=== PATIENT | female | born 1970 | race Caucasian/White ===

== ENCOUNTER 2016-10-24 10:23 | Day surgery (SDC) | payer OTHER ==
[2016-10-24] VITALS (8 sets, daily range): BP systolic 102–125; BP diastolic 52–78; PULSE 60–86; RESP 16–33; O2SAT 97–100
[~2016-10-24] VITALS: Ht 162.6 cm; Wt 75.3 kg
[2016-10-24] MEDS: Lactated Ringer's 1,000 ML IV SCH ×2 (05:44→12:42)
[~2016-10-24 10:23] MED LIST: CA C PO; CHOL100045 PO; META-1 PO; [UNRECOGNIZED DRUG - CODE] PO; [UNRECOGNIZED DRUG - OTHER] PO
[2016-10-24] MEDS ORDERED: Dexamethasone 4 mg/mL Inj ONE (10:24)
[2016-10-24] MEDS ORDERED: fentaNYL-PF 50 mCg/mL 2 mL Inj ONE (10:24)
[2016-10-24] MEDS ORDERED: Propofol 10,000 mCg/mL 20 mL Inj ONE (10:24)
[2016-10-24] MEDS ORDERED: Lidocaine PF 1% 30 mL Inj ONE (10:24)
[2016-10-24] MEDS ORDERED: Ondansetron 2 mg/mL 2 mL Inj ONE (10:24)
[2016-10-24] MEDS ORDERED: Lactated Ringer's 1,000 ML IV SCH (12:34)
[2016-10-24] MEDS ORDERED: Lactated Ringer's 500 ML IV PRN (12:34)
--- NOTE | 2016-10-24 12:34 | PCM.HPANE ---
Patient Data Date of Service: October 24, 2016 ([id number]) Surgeon Admitting Provider: Attending Provider:Parvez Mcadams MD Primary Care Physician:Jacquelyn Peña MD Other Provider:Ramiro Kulkarni Anesthesia Reason for Visit Left Breast Cyst Ht/WT & BMI Height (Feet): 5 Height (Inches): 4.00 Weight (Kilograms): 75.3 Body Mass Index 28.00 Allergies Uncoded Allergies: CHLOROPREP (Allergy, Unknown, UNKNOWN, 10/22/16) bandaid (Adverse Reaction, Severe, rash, 10/22/16) Past Anesthesia History Anesthesia History: Denies:: Anesthesia Reactions, Malignant Hyperthermia Diabetes History Hx Diabetes?: No MRSA MRSA: No Medications Home Meds Incl Beta Kait: No Reported Medications Cholecalciferol (Vitamin D3) (Vitamin D)1,000 Unit Capsule2,000 Unit PO DAILY # 1 BOTTLE Ref 0 10/22/16 Multivitamins with Fluoride (Multivit-Fluor 0.5 mg/ml Drop)0.5 Mg/1 Ml Drops0.5 Mg PO DAILY 10/22/16 Metaxalone 800 Mg [id number] Mg PO TID PRN For Pain 10/22/16 [Cranberry Probiotic] No Conflict Check1 Tab PO DAILY 10/22/16 Ca Carbonate/Vitamin D3/Vit K (Calcium For Women Chewable Tab)1 Each Tab.chew1 Each PO DAILY 10/22/16 Discontinued Reported Medications No Historical Medication Ea 05/01/10 History History of ENT Problems?: No HEENT History: Denies:: Abnormal Airway Denture Type: None Teeth Condition: Within Normal Limits Hx of Heart Problems?: No Cardiovascular History: Denies:: Heart Murmur Hypertension Hx of Respiratory Problem?: No Respiratory History: Denies:: Use of C-PAP Machine Hx Neurologic Problems?: No Hx of GI Problems?: Yes Other GI Pertinent History: S/P GASTRIC SLEEVE, 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 (HX OF PREVIOUS CYSTS W/ RUPTURE LT BREAST CYST=CURRENT PROBLEM) Denies:: Currently Skin History: Positive for:: History Skin Disorders? (INTERMITTANT RASHES) Denies:: Pressure Ulcers Hx Musculoskeletal Problems?: Yes Musculoskeletal History: Positive for:: Osteoarthritis Hx of Psycho/Social Problems?: No Hx Surgeries?: Yes (PEARL,BTL,PELVIC FLOOR RPR,GASTRIC SLEEVE,FISTULA RPR) Hx Any Other Health Problems?: Yes Other History: Denies:: Cancer Endocrine Disease Hospitalization Thyroid Disease Hx Diabetes: No Hx Alcohol Use: Yes (OCCAS)Have You Smoked inLast 12 mo: No Stop/Bang S-Snoring: Do You Snore Loudly: Yes T-Tired: feel tired, fatigued: No O-Obsered: Observed not breath: No P-Blood Pressure: treated: No B- Body Mass Index > 35 kg/m2: No A- Age over 50: No N- Neck Large Circumference: No G- Gender Male: No NAYANA Total Score: 0 NAYANA Risk Assessment: Low Risk, <3 Yes Risk Assessment Category Category 1A: Patient has history of documented sleep apnea, and HAS NOT received any narcotic, sedative or anesthesia administration during this stay. Category 1B: Patient has history of documented sleep apnea, and HAS received any narcotic , sedative or anesthesia administration during this stay Category 2: Patient has SUSPECTED Obstructive Sleep Apnea, and HAS received any narcotic , sedative or anesthesia administration during this stay. Category 3: Patient has SUSPECTED Obstructive Sleep Apnea and HAS NOT received narcotic, sedative or anesthesia administration during this stay. Category 4: Outpatient in Procedural Areas with known sleep apnea or who screen positive for High Risk via the STOP/BANG questionnaire. Exam Exam Vital Signs Vital Signs Date Time Temp Pulse Resp B/P Pulse Ox O2 Delivery O2 Flow Rate FiO2 10/24/16 10:48 35.9 60 16 125/64 97 Room Air General Appearance: Alert, Oriented X3, Cooperative HEENT/AIRWAY: MP 1 Lungs: Clear to Auscultation Heart: Exam Unremarkable Meds/Labs/Diagnostics Admission Meds Current Medications Lactated Ringer's (Lr) 1,000 ml @ 120 mls/hr [id number] IV Last administered on t 05:44; Start 10/24/16 at 05:00; Stop 10/24/16 at 13:19 Plan Impression Patient chart reviewed, patient interviewed and anesthestic plan with risks, benefits, and alternatives discussed, and informed consent obtained. Vijay Ribeiro MD October 24, 2016 12:34
[2016-10-24] MEDS ORDERED: EPHEDrine Sulfate 50 mg/mL Inj IVPUSH PRN (12:35)
[2016-10-24] MEDS ORDERED: Phenylephrine 10,000 mCg/mL Inj IVPUSH PRN (12:35)
[2016-10-24] MEDS ORDERED: fentaNYL-PF 50 mCg/mL 2 mL Inj IVPUSH PRN (12:35)
[2016-10-24] MEDS ORDERED: Ondansetron 2 mg/mL 2 mL Inj IVPUSH PRN (12:35)
[2016-10-24] MEDS ORDERED: Dexamethasone 4 mg/mL Inj IVPUSH PRN (12:35)
[2016-10-24] MEDS ORDERED: HYDROmorphone 1 mg/mL Inj IVPUSH PRN (12:35)
[2016-10-24] MEDS ORDERED: MetoCLOpramide 5 mg/mL 2 mL Inj IVPUSH PRN (12:35)
[2016-10-24] MEDS ORDERED: Bupivacaine-MPF 0.5% W/EPI 30 mL Inj INJ ONE (12:56)
--- NOTE | 2016-10-24 13:35 | PCM.ANEP1 ---
Post Anesthesia Phase 1 PACU Phase 1 Assessment Date of Service: October 24, 2016 (7023) Vital Signs 36.5, 121/55, 100, 100%, 18 Vital Signs Date Time Temp Pulse Resp B/P Pulse Ox O2 Delivery O2 Flow Rate FiO2 10/24/16 10:48 35.9 60 16 125/64 97 Room Air Anesthetic Administered: GA Level of Alertness: Awake, talking JOHNSON's with Equal Strength: Yes Pain: No Nausea or Vomiting: No Lungs: Clear to Auscultation Summary uneventful GA Complications: No Follow up Care: No Vijay Ribeiro MD October 24, 2016 13:35
[2016-10-24] MEDS ORDERED: HYDROcodone-APAP 5-325 mg Tablet PO PRN (13:45)
--- NOTE | 2016-10-24 13:45 | PCM.DISURG ---
Surgical Discharge Instruction Date of Service October 24, 2016 Dates of Hospitalization Date of Hospital Admission Providers Admitting Physician: Primary Care Physician: Jacquelyn Peña MD Attending Physician: Parvez Mcadams MD Discharge Diagnosis Discharge Diagnosis Symptomatic left breast cyst Diet Discharge Diet: No restrictions Activity Discharge Activity-General: No restrictions Dressing and Incisional Care Dressing Instructions: Dermabond will peel off gradually Hygiene: May shower Follow Up Plan Follow Up Plan In the general surgery [place] postoperative clinic for a wound check in 2-3 weeks Call your provider for: Fever (over 101.5), Discharge @ incision, pus discharge Parvez Mcadams MD October 24, 2016 13:45
--- NOTE | 2016-10-24 13:50 | PCM.SURGOP ---
Surgical Operative Report Date of Service: October 24, 2016 Pre Operative Diagnosis Symptomatic left breast cyst Post Operative Diagnosis Same Procedure: Excision of left breast cyst Surgeon and Fast Food Sales Assistant: Surgeon: Parvez Mcadams MD Assistants: None Indication for Procedure 46-year-old woman who has had multiple cysts in both breasts, but has had an enlarging left breast cyst causing contour deformity and significant pain in the breast. On ultrasound, there was a simple cyst measuring 2.2 x 2.1 x 1.6 cm in the left breast 11 o'clock position, correlating to the palpable abnormality. After discussion of risks and benefits, she agreed to proceed with excision. Findings: The dominant cyst was excised without entering it, but there were multiple other small breast cysts as well. Procedure Details After smooth induction of general anesthesia with an LMA, she was placed in the supine position with the left arm out, and was prepped and draped in wide sterile fashion. A procedural pause was performed according to the SCOAP checklist, and all were found to be in agreement. A curvilinear incision was made in the left superior breast in the periareolar margin. Dissection was carried down through the superficial breast tissue with electrocautery. Circumferential dissection was then carried out around the palpable cyst without entering the cyst. It was excised intact. The excised tissue was oriented with suture, and sent for permanent pathology. During dissection, there were multiple other small cysts in the breast parenchyma circumferentially. Hemostasis was adequate. The cavity was marked with a few medium hemoclips. The breast parenchyma was closed with interrupted 3-0 Vicryl sutures, and a running 4-0 Vicryl subcuticular stitch on the skin. Dermabond was applied to the skin as a dressing. At the end the case all needle and sponge counts were correct 2. The patient was awakened from anesthesia without difficulty, and taken to the recovery room in satisfactory condition, having tolerated the procedure well. Complications There were no periprocedural complications identified. Surgical Specimen Removed: Yes Specimen sent to Pathology: Yes Surgical Specimen description: Left breast cyst Anesthetic Plan: GA Grafts, Implants: None Output, Estimated Blood Loss: 20 Blood Administration during andrade: No Drains: None Catheters: None copies to: Jacquelyn Peña MD, Joshua D MD October 24, 2016 13:50
--- NOTE | 2016-10-27 16:13 | PATH ---
SURGICAL PATHOLOGY Attending Physician:Ronaldo Duque CASE STATUS: Signed Out PATIENT NAME: DILSHAD RUTLEDGE PID: [id number] : 1970 DATE COLLECTED:10/24/2016 00:00 SPECIMEN: Breast, Biopsy - Excisional CLINICAL HISTORY: LEFT BREAST CYST 1). LEFT BREAST CYST, SHORT SUPERIOR, LONG LATERAL FINAL DIAGNOSIS: 1.LEFT BREAST EXCISIONAL SPECIMEN: LARGE BENIGN SIMPLE EPITHELIAL CYST (1.2 X 0.8 X 0.7 CM), CHRONICALLY INFLAMED, WITH ASSOCIATED REACTIVE FIBROSIS. MULTIPLE ADDITIONAL SMALL SIMPLE EPITHELIAL CYSTS, NEGATIVE FOR ATYPIA. ICD10 code N60.1 GROSS DESCRIPTION: The specimen consists of a piece of breast tissue (4.2 cm AP, 2.8 cm SI, 3.6 cm ML) with no overlying skin. The specimen is oriented with 2 black sutures (short-superior, long-lateral). No localization wire is present. The specimen is serially sectioned AP into 14 slices with the anterior and posterior resection margins slices #1 and #14 respectively. The breast tissue is densely fibrous with a cystic center (1.2 x 0.8 x 0.7 cm) containing pale yellow turbid fluid. No scirrhous areas are identified. Ink code: purple-anterior; yellow-posterior; black-superior; orange-inferior; green-medial; blue-lateral. Section code: (A) anterior resection margin, perpendicularly sectioned, passenger service representative; (B-K) slices #7-#11, each bisected and submitted ML, slices entirely submitted; (L) posterior resection margin, perpendicularly sectioned, passenger service representative. Note: Approximate total fixation time in formalin-49 hours and 30 minutes using a collection date of October 24, 2016 with no collection time given. 10/25/16 JM MICRO DESCRIPTION: See diagnosois. ICD-9 CODES: CPT CODES: 41852 Electronically Signed Out Geronimo Cortés MD [facility] [address], [place] [address] Technical component performed at [facility], [address], [place], [address]
== END 2016-10-24 23:59 | disposition home or self-care (01) ==
LOC: SAS 10:23
PROVIDERS: ATTEND Student in an Organized Health Care Education/Training Program
PROC: 0HBU0ZZ Excision of Left Breast, Open Approach (ICD-10-PCS; principal; 2016-10-24 12:30)
DX: N60.02 Solitary cyst of left breast (principal)
CPT/HCPCS: 19120; J1100; J1885; J2250; J2405; J3010; J7120